=== PATIENT | male | born 1955 | race Caucasian/White ===

== ENCOUNTER 2021-03-14 14:44 | Emergency (ER) | payer MEDICARE, OTHER ==
[~2021-03-14] VITALS: Ht 182.9 cm; Wt 68.0 kg
[2021-03-14] MEDS ORDERED: PROSCAR 5MG TABL5 M1 PO (14:58)
[2021-03-14] MEDS ORDERED: NEXIUM40 MG PO (14:58)
[2021-03-14] MEDS ORDERED: EFFEXOR XR75 MG PO (14:58)
[2021-03-14] MEDS ORDERED: TYLENOL325 M1 PO (15:59)
[2021-03-14] MEDS ORDERED: IBUPROFEN 800800 MG PO (15:59)
[2021-03-14 16:20] VITALS: BP 158/86
== END 2021-03-14 16:22 | disposition home or self-care (01) ==
LOC: M.ERS 14:44
DX: S62.171A Displaced fracture of trapezium [larger multangular], right wrist, initial encounter for closed fracture (principal); W01.0XXA Fall on same level from slipping, tripping and stumbling without subsequent striking against object, initial encounter; Y93.89 Activity, other specified; Y92.89 Other specified places as the place of occurrence of the external cause; Y99.8 Other external cause status

== ENCOUNTER → 2021-10-20 | Outpatient (CLI) | payer MEDICARE, OTHER ==
[~2021-10-20] MED LIST: EFFEXOR XR75 MG PO; IBUPROFEN 800800 MG PO; NEXIUM40 MG PO; PROSCAR 5MG TABL5 M1 PO; TYLENOL325 M1 PO
== END ==
LOC: M.NUC 09-24 07:30
PROVIDERS: ATTEND Nurse Practitioner Family
DX: R13.10 Dysphagia, unspecified (principal)

== ENCOUNTER → 2021-10-27 | Outpatient (CLI) | payer MEDICARE, OTHER | LOC: M.LAB 08:26 | PROVIDERS: ATTEND Internal Medicine Gastroenterology | DX: Z01.812 Encounter for preprocedural laboratory examination (principal); Z20.822 Contact with and (suspected) exposure to COVID-19 ==

== ENCOUNTER → 2021-11-09 | Outpatient (CLI) | payer MEDICARE, OTHER | LOC: M.RAD 09:39 | PROVIDERS: ATTEND Internal Medicine Gastroenterology | DX: K22.70 Barrett's esophagus without dysplasia (principal); R13.10 Dysphagia, unspecified ==